=== PATIENT | female | born 1995 | race Two or more races ===

== ENCOUNTER → 2023-06-25 | Emergency (ER) | payer OTHER ==
[~2023-06-25] VITALS: Ht 165.1 cm; Wt 95.3 kg
[~2023-06-25] MED LIST: PRENATAL 19 CH1 EAC1
== END | disposition left against medical advice (07) ==
LOC: ER 21:35
DX: Z53.21 Procedure and treatment not carried out due to patient leaving prior to being seen by health care provider (principal)

== ENCOUNTER 2023-08-25 08:37 | Outpatient (CLI) | payer OTHER | END 2023-08-25 08:39 | disposition home or self-care (01) | LOC: PRENATAL 08:37 | PROVIDERS: ATTEND Obstetrics & Gynecology Maternal & Fetal Medicine | DX: O26.849 Uterine size-date discrepancy, unspecified trimester (principal); Z3A.15 15 weeks gestation of pregnancy ==

== ENCOUNTER 2023-11-29 16:58 | Outpatient (CLI) | payer OTHER ==
[~2023-11-29] VITALS: Ht 162.6 cm; Wt 102.1 kg
[2023-11-29] MEDS ORDERED: RINGERS SOLUTION,LACTATED 1,000 ML IV SCH (17:30)
[2023-11-29] MEDS ORDERED: ACETAMINOPHEN 500 MG GEL..CAP PO ONE (17:30)
[2023-11-29 17:34] LABS: HEMATOCRIT 37.8 % (36.0-45.00); HEMOGLOBIN 13.2 g/dL (12.0-15.00); MEAN CELL VOLUME 86.4 fL (80.00-100.00); MEAN CORPUSCULAR HEMOGLOBIN 30.1 pg (27.00-32.0); MEAN CORPUSCULAR HGB CONC 34.8 g/dl (32.0-36.0); PLATELET COUNT 209 K/uL (150-450); RED BLOOD COUNT 4.38 M/uL (4.00-6.00); RED CELL DISTRIBUTION WIDTH 13.9 % (11.5-14.5)
[2023-11-29 17:53] LABS: INR 0.97; PARTIAL THROMBOPLASTIN TIME 30.1 SECONDS (22.0-34.0); PROTHROMBIN TIME 10.2 SECONDS (9.0-11.5)
[2023-11-29 17:59] LABS: ALBUMIN 2.8 gm/dL (3.4-5.0); BILIRUBIN TOTAL 0.21 mg/dL (0.3-1.2); CALCIUM 8.9 mg/dL (8.5-10.1); CREATININE SERUM 0.66 mg/dL (0.55-1.02); GFR 107.43; GLOBULINA 3.9 G/DL (2.4-3.5); POTASSIUM 3.81 mEq/L (3.5-5.1); TOTAL PROTEIN 6.7 gm/dL (6.4-8.2)
[2023-11-30 18:48] LABS: URINE PROT QUANT 24HR 8.8 MG/DL
[2023-11-30 19:00] LABS: URINE PROT QUANT 24 HR 255.2 MG/24HR (42-225)
== END 2023-11-30 19:41 | disposition home or self-care (01) ==
LOC: OBS/DEL 16:58 → LDR 11-30 18:31 → OBS/DEL 11-30 18:31 → LDR 11-30 19:41 → OBS/DEL 11-30 19:41
PROVIDERS: ATTEND Obstetrics & Gynecology Obstetrics
DX: O26.893 Other specified pregnancy related conditions, third trimester (principal); O26.849 Uterine size-date discrepancy, unspecified trimester; O36.8199 Decreased fetal movements, unspecified trimester, other fetus; Z3A.30 30 weeks gestation of pregnancy

== ENCOUNTER → 2024-01-07 11:36 | Outpatient (CLI) | payer OTHER | END | disposition home or self-care (01) | LOC: PRENATAL 11:36 | PROVIDERS: ATTEND Obstetrics & Gynecology Maternal & Fetal Medicine | DX: O26.843 Uterine size-date discrepancy, third trimester (principal); O36.8130 Decreased fetal movements, third trimester, not applicable or unspecified; Z3A.36 36 weeks gestation of pregnancy ==

== ENCOUNTER 2024-01-21 12:39 | Inpatient (IN) | payer OTHER ==
[~2024-01-21] VITALS: Ht 162.6 cm; Wt 105.2 kg
[2024-01-21 11:57] VITALS: BP 115/73
[2024-01-21] MEDS ORDERED: RINGERS SOLUTION,LACTATED 1,000 ML IV SCH (13:15)
[2024-01-21 13:46] LABS: PH,URINE 6.5 (5.0-8.0); URINE APPEARANCE Clear; URINE BILIRRUBIN Negative (NEGATIVE); URINE BLOOD Negative; URINE COLOR Yellow; URINE GLUCOSE Negative (NEGATIVE); URINE KETONE Negative (NEGATIVE); URINE LEUKOCYTE Large; URINE NITRATE Negative; URINE PROTEIN Negative (NEGATIVE); URINE UROBILINOGEN 0.2 E.U./dl
[2024-01-21 13:48] LABS: HEMATOCRIT 40.1 % (36.0-45.00); HEMOGLOBIN 13.9 g/dL (12.0-15.00); MEAN CELL VOLUME 87.4 fL (80.00-100.00); MEAN CORPUSCULAR HEMOGLOBIN 30.3 pg (27.00-32.0); MEAN CORPUSCULAR HGB CONC 34.6 g/dl (32.0-36.0); PLATELET COUNT 195 K/uL (150-450); RED BLOOD COUNT 4.59 M/uL (4.00-6.00); RED CELL DISTRIBUTION WIDTH 13.7 % (11.5-14.5)
[2024-01-21 13:49] LABS: URINE EPITHELIAL CELLS 39.2 uL (0.0-38.8); URINE RBC 2.9 uL (0.0-20.8); URINE WBC 119.2 uL (0.0-23.2)
[2024-01-21 14:04] LABS: INR 0.94; PARTIAL THROMBOPLASTIN TIME 29.6 SECONDS (22.0-34.0); PROTHROMBIN TIME 10.3 SECONDS (9.0-11.5)
[2024-01-21 14:11] LABS: URINE CAST 1.06 uL (0.0-1.40)
[2024-01-21 16:55] VITALS: BP 119/67
[2024-01-21 19:55] VITALS: BP 119/67
[2024-01-21 20:02] VITALS: BP 108/69
[2024-01-21] MEDS ORDERED: AMPICILLIN SODIUM 2,000 MG VIAL ONE (20:12)
[2024-01-21] MEDS ORDERED: AMPICILLIN SODIUM 2,000 MG VIAL IV STA (20:15)
[2024-01-21 23:30] VITALS: BP 108/60
[2024-01-21] MEDS ORDERED: AMPICILLIN SODIUM 1,000 MG VIAL ONE (23:47)
[2024-01-21 23:56] VITALS: BP 104/60
[2024-01-22] MEDS ORDERED: AMPICILLIN SODIUM 1,000 MG VIAL IV SCH
[2024-01-22] MEDS ORDERED: AMPICILLIN SODIUM 1,000 MG VIAL ONE ×2 (04:00→07:13)
[2024-01-22 04:10] VITALS: BP 124/70
[2024-01-22 07:40] VITALS: BP 123/74
[2024-01-22] MEDS ORDERED: MISOPROSTOL 25 MCG/4 ML GEL.W.APPL ONE (14:26)
[2024-01-22] MEDS ORDERED: MISOPROSTOL 25 MCG/4 ML GEL.W.APPL VAG ONE (14:30)
[2024-01-22 15:31] VITALS: BP 124/64
[2024-01-22 19:28] VITALS: BP 116/57
[2024-01-22] MEDS ORDERED: PROMETHAZINE HCL 25 MG/ML AMPUL ONE (22:28)
[2024-01-22 22:33] VITALS: BP 129/65
[2024-01-22] MEDS ORDERED: PROMETHAZINE HCL 25 MG/ML AMPUL IV ONE (23:15)
[2024-01-22] MEDS ORDERED: MEPERIDINE HCL/PF 50 MG/ML VIAL IV ONE (23:15)
[2024-01-22 23:42] VITALS: BP 116/64
[2024-01-23 03:25] VITALS: BP 127/72
[2024-01-23 07:52] VITALS: BP 125/67
[2024-01-23 11:00] VITALS: BP 122/68
[2024-01-23] MEDS ORDERED: OXYTOCIN 10 UNITS/ML VIAL ONE (14:37)
[2024-01-23] MEDS ORDERED: ERYTHROMYCIN BASE OPHT 1GM EACH TUBE OP ONE (14:37)
[2024-01-23] MEDS ORDERED: AMPICILLIN SODIUM 1,000 MG VIAL ONE (16:29)
[2024-01-23] MEDS ORDERED: PROMETHAZINE HCL 25 MG/ML AMPUL IM PRN (17:00)
[2024-01-23 19:00] VITALS: BP 128/70
[2024-01-23] MEDS ORDERED: MEPERIDINE HCL/PF 50 MG/ML VIAL IM PRN (21:30)
[2024-01-24 01:41] VITALS: BP 112/74
[2024-01-24] MEDS ORDERED: IBUprofen 800 MG TABLET PO PRN (10:00)
[2024-01-24 10:29] VITALS: BP 119/78
[2024-01-24 17:02] VITALS: BP 135/85
[2024-01-25 00:29] VITALS: BP 116/78
[2024-01-25 08:46] VITALS: BP 124/82
[2024-01-25 12:00] VITALS: BP 117/81
[2024-01-25 19:33] VITALS: BP 118/76
[2024-01-26 00:28] VITALS: BP 117/75
[2024-01-26 08:50] VITALS: BP 127/83
== END 2024-01-26 15:48 | disposition home or self-care (01) | DRG 788 ==
LOC: OBS/DEL 12:39 → LDR 18:00 → OBS/DEL 18:00 → LDR 22:49 → OB/GYN 01-23 16:17
PROVIDERS: ADMIT Obstetrics & Gynecology Obstetrics; ATTEND Obstetrics & Gynecology Obstetrics
PROC: 4A1HXCZ Monitoring of Products of Conception, Cardiac Rate, External Approach (ICD-10-PCS; 2024-01-21)
PROC: BY4FZZZ Ultrasonography of Third Trimester, Single Fetus (ICD-10-PCS; 2024-01-21)
PROC: BY47ZZZ Ultrasonography of Fetal Umbilical Cord (ICD-10-PCS; 2024-01-21)
PROC: 3E033VJ Introduction of Other Hormone into Peripheral Vein, Percutaneous Approach (ICD-10-PCS; 2024-01-22)
PROC: 3E0P7VZ Introduction of Hormone into Female Reproductive, Via Natural or Artificial Opening (ICD-10-PCS; 2024-01-22)
PROC: 10D00Z1 Extraction of Products of Conception, Low, Open Approach (ICD-10-PCS; principal; 2024-01-23 14:00)
DX: O42.02 Full-term premature rupture of membranes, onset of labor within 24 hours of rupture (principal); O26.843 Uterine size-date discrepancy, third trimester; O36.8130 Decreased fetal movements, third trimester, not applicable or unspecified; Z3A.38 38 weeks gestation of pregnancy; Z37.0 Single live birth; Z20.822 Contact with and (suspected) exposure to COVID-19